=== PATIENT | female | born 1975 | race Caucasian/White ===

== ENCOUNTER 2017-07-01 16:47 | Emergency (ER) | payer SELFPAY ==
[~2017-07-01] VITALS: Ht 167.6 cm; Wt 104.5 kg
[2017-07-01] MEDS ORDERED: MELOXICAM7.5 MG PO (18:30)
[2017-07-01 18:38] VITALS: BP 158/99
== END 2017-07-01 18:33 | disposition home or self-care (01) ==
LOC: ED 16:47
DX: S80.01XA Contusion of right knee, initial encounter (principal); W18.30XA Fall on same level, unspecified, initial encounter; Y92.009 Unspecified place in unspecified non-institutional (private) residence as the place of occurrence of the external cause

== ENCOUNTER 2017-08-25 08:39 | Emergency (ER) | payer SELFPAY ==
[~2017-08-25] VITALS: Ht 167.6 cm; Wt 100.0 kg
[~2017-08-25 08:39] MED LIST: MELOXICAM7.5 MG PO
[2017-08-25 09:19] LABS: EOS # 0.1 (0.04-0.40); EOS % 1.2 % (1.0-5.0); HEMATOCRIT 38.4 % (37.0-47.0); HEMOGLOBIN 12.7 g/dL (12.5-16.0); LYMPH# 1.3 (1.50-4.00); MEAN CELL VOLUME 90 fl (78-100); MEAN CORPUSCULAR HEMOGLOBIN 30 pg (27-31); MEAN CORPUSCULAR HGB CONC 33 g/dL (33-37); MEAN PLATELET VOLUME 10.6 fl (7.4-10.4); MONO # 0.5 (0.20-0.80); NEU # 6.2 (1.40-6.50); PLATELET COUNT 287 K/mm3 (130-400); RED BLOOD COUNT 4.25 M/mm3 (4.10-5.30); RED CELL DISTRIBUTION WIDTH 12.6 % (11.5-14.5); WHITE BLOOD COUNT 8.1 K/mm3 (4.8-10.8)
[2017-08-25 09:36] LABS: ALBUMIN 4.5 g/dL (3.5-5.0); ALT/SGPT 31 U/L (9-52); AST-SGOT 20 U/L (14-36); BUN/CREATININE RATIO 17.9 (6.0-26.0); CALCIUM 9.8 mg/dL (8.4-10.2); CARBON DIOXIDE 26 mmol/L (22-30); GLUCOSE 90 mg/dL (65-105); LIPASE 121 U/L (23-300); POTASSIUM 4.2 mmol/L (3.6-5.0); SODIUM 137 mmol/L (137-145); TOTAL BILIRUBIN 0.6 mg/dL (0.2-1.3); TOTAL PROTEIN 7.7 g/dL (6.3-8.2)
[2017-08-25 13:17] VITALS: BP 118/62
== END 2017-08-25 13:17 | disposition home or self-care (01) ==
LOC: ED 08:39
PROVIDERS: Family Medicine
DX: R07.89 Other chest pain (principal)